=== PATIENT | male | born 1955 | race African-American/Black ===

== ENCOUNTER 2019-05-07 05:35 | Emergency (ER) | payer SELFPAY ==
[~2019-05-07] VITALS: Ht 175.3 cm; Wt 76.2 kg
[2019-05-07 08:08] LABS: CLARITY URINE CLEAR (CLEAR); COLOR URINE ORANGE (YELLOW); KETONES URINE NEGATIVE (NEGATIVE); LEUKOCYTE ESTERASE URINE 1+ (NEGATIVE); NITRITE URINE NEGATIVE (NEGATIVE); OCCULT BLOOD URINE 3+ (NEGATIVE); PH URINE 5.5 (4.5-8.0); PROTEIN URINE TRACE (NEGATIVE); UROBILINOGEN URINE 0.2 E.U./dL (0.2-1.0)
[2019-05-07 09:13] VITALS: BP 141/72
== END 2019-05-07 09:33 | disposition home or self-care (01) ==
LOC: ER 05:35
DX: R33.9 Retention of urine, unspecified (principal); N39.0 Urinary tract infection, site not specified; F12.10 Cannabis abuse, uncomplicated; Z87.891 Personal history of nicotine dependence; Z87.430 Personal history of prostatic dysplasia; Z82.49 Family history of ischemic heart disease and other diseases of the circulatory system
CPT/HCPCS: 51702; 81003; 99284